=== PATIENT | female | born 1990 | race American Indian/Alaskan Native ===

== ENCOUNTER 2016-05-23 13:38 | Emergency (ER) | payer SELFPAY ==
[2016-05-23 15:09] LABS: Anion Gap 16 mmol/L; BUN/Creatinine Ratio 18.33; Blood Urea Nitrogen 11 mg/dL (7-17); Calcium 9.4 mg/dL (8.4-10.2); Carbon Dioxide 26 mmol/L (22-30); Glucose 85 mg/dL (65-100); Potassium 3.6 mmol/L (3.6-5.0); Sodium 139 mmol/L (137-145)
[2016-05-23 15:43] LABS: Basophils % (Auto) 0.3 % (0.0-1.8); Eosinophils % (Auto) 0.7 % (0.0-4.3); Hematocrit 41.5 % (30.3-42.9); Hemoglobin 13.5 gm/dl (10.1-14.3); Mean Corpuscular HGB Conc 33 % (30-34); Mean Corpuscular Hemoglobin 29 pg (28-32); Mean Corpuscular Volume 89 fl (79-97); Platelet Count 273 K/mm3 (140-440); Red Blood Count 4.68 M/mm3 (3.65-5.03); Red Cell Distribution Width 12.2 % (13.2-15.2); White Blood Count 7.1 K/mm3 (4.5-11.0)
[2016-05-24 01:24] VITALS: BP 144/95
--- NOTE | 2016-05-24 01:28 | Emergency Department Report ---
ED Chest Pain HPI - General Chief Complaint: Chest Pain Stated Complaint: CHEST PAIN/LF ARM NUMB/NECK PAIN/SOB Time Seen by Provider: 05/24/16 01:17 Source: patient Mode of arrival: Ambulatory Limitations: No Limitations - History of Present Illness Initial Comments: This is a 26-year-old female complaining of left neck pain with pain radiating down her left arm and into her left chest and scapular region as well. She denies any specific trauma. She states the symptoms than there for approximately 3 days. They are worse with activities and movement. She states is hard to go from a lying to sitting position. She also has noted some weakness in her left leg as well. Again no trauma specifically reported. She denies headache. He denies any significant cardiac history that she is aware of. She denies high blood pressure or diabetes. She is not on control currently. She doesn't smoke. Severity scale (0 -10): 6 Other Symptoms: denies: cough, fever, rash Treatments Prior to Arrival: none Aspirin use within the Past 7 Days: (0) No - Related Data Previous Rx's Medication Instructions Recorded Last Taken Type Nitrofurantoin [place]/M-Cryst 100 mg PO Q12HR #14 capsule 01/14/16 Unknown Rx [Macrobid CAP] Naproxen [Naprosyn] 500 mg PO BID #20 tablet 05/24/16 Unknown Rx Allergies Allergy/AdvReac Type Severity Reaction Status Date / Time latex AdvReac Unknown Verified 05/23/16 13:58 EZEQUIEL score - Ezequile Score Age > 65: (0) No Aspirin use within the Past 7 Days: (0) No 3 or more CAD Risk Factors: (0) No 2 or more Angina events in past 24 hrs: (0) No Known CAD with more than 50% Stenosis: (0) No Elevated Cardiac Markers: (0) No ST Deviation Greater than 0.5mm: (0) No EZEQUIEL Score: 0 ED Review of Systems ROS: Stated complaint: CHEST PAIN/LF ARM NUMB/NECK PAIN/SOB Other details as noted in HPI Comment: All other systems reviewed and negative Constitutional: denies: chills, fever Eyes: denies: eye pain, eye discharge, vision change ENT: denies: ear pain, throat pain Respiratory: denies: cough, shortness of breath, wheezing Cardiovascular: chest pain. denies: palpitations Endocrine: no symptoms reported Gastrointestinal: denies: abdominal pain, nausea, diarrhea Genitourinary: denies: urgency, dysuria, discharge Musculoskeletal: denies: back pain, joint swelling, arthralgia Skin: denies: rash, lesions Neurological: weakness. denies: headache, paresthesias Psychiatric: denies: anxiety, depression Hematological/Lymphatic: denies: easy bleeding, easy bruising ED Past Medical Hx - Past Medical History Previous Medical History?: No Additional medical history: vaginal delivery x 2 - Surgical History Past Surgical History?: No Additional Surgical History: 07/03/15 - Social History Smoking Status: Never Smoker Substance Use Type: Alcohol - Medications Home Medications: Home Medications Medication Instructions Recorded Confirmed Last Taken Type Nitrofurantoin [place]/M-Cryst 100 mg PO Q12HR #14 capsule 01/14/16 Unknown Rx [Macrobid CAP] Naproxen [Naprosyn] 500 mg PO BID #20 tablet 05/24/16 Unknown Rx ED Physical Exam - General Limitations: No Limitations General appearance: alert, in distress (due to neck pain) - Head Head exam: Present: atraumatic, normocephalic - Eye Eye exam: Present: normal appearance, EOMI. Absent: scleral icterus - ENT ENT exam: Present: normal exam, normal orophraynx, mucous membranes moist - Neck Neck exam: Present: other (tenderness over the left paracervical region extending down the left trapezius. Spasming is appreciated as well. Intolerance to range of motion due to this discomfort. No midline tenderness is appreciated.) - Respiratory Respiratory exam: Present: normal lung sounds bilaterally. Absent: respiratory distress, wheezes, rales - Cardiovascular Cardiovascular Exam: Present: regular rate, normal rhythm. Absent: systolic murmur, diastolic murmur, rubs, gallop - GI/Abdominal GI/Abdominal exam: Present: soft, normal bowel sounds. Absent: distended, tenderness, guarding - Extremities Exam Extremities exam: Present: normal inspection, other (increased pains of the neck with movement of the left arm. She has excellent intrinsic haand movement strength of the arms bilaterally.). Absent: pedal edema, calf tenderness - Back Exam Back exam: Present: normal inspection. Absent: tenderness, CVA tenderness (R), CVA tenderness (L), muscle spasm, paraspinal tenderness, vertebral tenderness - Neurological Exam Neurological exam: Present: alert, oriented X3, other (equal strength appreciated be made by me on the left upper and lower extremities as well as right upper and lower extremities. Downward Babinski's bilaterally. Patient is able to walk with a normal gait. Cranial nerves II through XII are intact as well.) - Psychiatric Psychiatric exam: Present: normal affect, normal mood - Skin Skin exam: Present: warm, dry, intact, normal color. Absent: rash ED Course Vital Signs 05/23/16 05/24/16 13:59 01:24 Temperature 98.2 F Pulse Rate 80 64 Respiratory 18 16 Rate Blood Pressure 114/83 Blood Pressure 144/95 [Left] O2 Sat by Pulse 100 95 Oximetry - Reevaluation(s) Reevaluation #1: 05/24/16 01:18 EKG at 1352 with normal sinus rhythm at 80 bpm. Normal CO QRS is noted. Normal axis. Normal ECG. Reevaluation #2: 05/24/16 05:54 Objectively I cannot appreciate left-sided weakness on the patient. Due to her subjective complaint however and her insistence that she may have had a stroke I did order a CT brain. This was negative for acute. He can her symptoms began 3 days ago. I would definitely expected be able to see something on CT at this point if there were something to see. Patient was reassured regarding not having a stroke. I strongly suspect she is having cervical radiculopathy with resulting left-sided pains. I did encourage her to take Aleve for this. She did get subjective near resolution with the Aleve and when she was given it here. No specific trauma was reported. I did not obtain plain films. She is not having midline tenderness. I suspect this is muscular in nature. I did give reassurance. Primary diagnosis cervical radiculopathy with myofascial strain. Safe for home. NB from a cardiac standpoint have no concerns. Her ECG is unremarkable labs are unremarkable. She does not have risk factors. I do not suspect PE she is perk negative. ED Medical Decision Making - Lab Data Result diagrams: 05/23/16 14:37 05/23/16 14:37 Critical care attestation.: If time is entered above; I have spent that time in minutes in the direct care of this critically ill patient, excluding procedure time. ED Disposition Clinical Impression: Cervical radiculopathy Disposition: DISCHARGED TO HOME OR SELFCARE Is pt being admited?: No Does the pt Need Aspirin: No Condition: Stable Instructions: Cervical Radiculopathy (ED) Additional Instructions: No strenuous activities. Continue routine activities however. After you start to feel improved, I'd like you to do some rehabilitation exercises to strengthen her neck and your back. Return if worsening. Prescriptions: Naproxen [Naprosyn] 500 mg PO BID #20 tablet Referrals: PRIMARY CARE, [Primary Care Provider] - 3-5 Days [facility] [Provider Group] - 3-5 Days Time of Disposition: 02:32
[2016-05-24] MEDS ORDERED: NAPROSYN PO ONE (01:49)
--- NOTE | 2016-05-24 02:16 | Cat Scan Report ---
FINAL REPORT PROCEDURE: CT HEAD/BRAIN WO CON TECHNIQUE: Computerized tomography of the head was performed without contrast material. HISTORY: L sided weakness COMPARISON: No prior studies are available for comparison. FINDINGS: Skull and scalp: Normal. Paranasal sinuses: Normal. Ventricles and subarachnoid spaces: Normal. Cerebrum: No evidence of hemorrhage, acute infarction or mass . Cerebellum and brainstem: No evidence of hemorrhage, acute infarction or mass. Vasculature: Normal. Comments: None. IMPRESSION: Normal Examination
== END 2016-05-24 02:39 | disposition home or self-care (01) ==
LOC: ED 13:38
DX: M54.12 Radiculopathy, cervical region (principal); Z91.040 Latex allergy status
CPT/HCPCS: 36415; 70450; 80048; 84484; 85025; 93005; 93010

== ENCOUNTER 2017-05-28 03:14 | Emergency (ER) | payer MEDICAID ==
[2017-05-28 04:35] LABS: BUN/Creatinine Ratio 20; Blood Urea Nitrogen 12 mg/dL (7-17); Hemolysis Index 44
[2017-05-28 05:03] LABS: Hematocrit 40.6 % (30.3-42.9); Hemoglobin 13.9 gm/dl (10.1-14.3); Mean Corpuscular Hemoglobin 30 pg (28-32); Mean Corpuscular Volume 88 fl (79-97); Red Blood Count 4.62 M/mm3 (3.65-5.03)
[2017-05-28 05:04] LABS: Basophils % (Auto) 0.4 % (0.0-1.8); Eosinophils % (Auto) 2.8 % (0.0-4.3); Lymphocytes % (Auto) 51.1 % (13.4-35.0); Mean Corpuscular HGB Conc 34 % (30-34); Monocytes % (Auto) 9.3 % (0.0-7.3); Platelet Count 253 K/mm3 (140-440); Red Cell Distribution Width 12.7 % (13.2-15.2)
[2017-05-28 05:05] LABS: Eosinophils # (Auto) 0.2 K/mm3 (0.0-0.4); Monocytes # (Auto) 0.7 K/mm3 (0.0-0.8)
[2017-05-28] MEDS ORDERED: NACL 0.9% 1000 ML 1,000 ML IV ONE (07:16)
--- NOTE | 2017-05-28 08:02 | XRay Report ---
CHEST 2 VIEWS INDICATION: Chest pain after drug use. COMPARISON: None similar. FINDINGS: PA and lateral chest radiographs demonstrate normal cardiomediastinal silhouette. Clear lungs. Intact bones. Bilateral nipple ornaments. EKG leads. CONCLUSION: No acute disease in the chest. Thank you for the opportunity to participate in this patient's care.
[2017-05-28 08:08] LABS: Amphetamine Screen,Urine PRESUMPTIVE NEGATIVE; Benzodiazepines Screen,Urine PRESUMPTIVE NEGATIVE; Cocaine Screen,Urine PRESUMPTIVE NEGATIVE; Methadone Screen,Urine PRESUMPTIVE NEGATIVE; Opiate Screen,Urine PRESUMPTIVE NEGATIVE
[2017-05-28 08:23] LABS: Bacteria,Urine 1+ /HPF (Negative); Bilirubin,Urine NEG (Negative); Blood,Urine NEG (Negative); Color,Urine Yellow (Yellow); Mucus,Urine 3+ /HPF; Protein,Urine <15 mg/dL mg/dL (Negative)
--- NOTE | 2017-05-28 08:34 | Emergency Department Report ---
History of Present Illness - General Chief Complaint: Overdose Stated Complaint: ETOH Time Seen by Provider: 05/28/17 07:44 Source: patient Mode of arrival: Ambulatory Limitations: No Limitations - History of Present Illness Initial Comments: 27-year-old female in no significant past medical history presents to the hospital complaining of generalized weakness and shortness of breath and chest pain after drinking alcohol and eating edibles with friends at the [employer] club last night. As per triage patient is awake with eyes fluttering and heavy breathing upon arrival. Currently she is resting, soft spoken, stating that she continues to feel generalized weakness. Chest pain has resolved. The edibles likely contained marijuana and denies other substance abuse. - Related Data Previous Rx's Medication Instructions Recorded Last Taken Type Nitrofurantoin [place]/M-Cryst 100 mg PO Q12HR #14 capsule 01/14/16 Unknown Rx [Macrobid CAP] Naproxen [Naprosyn] 500 mg PO BID #20 tablet 05/24/16 Unknown Rx Allergies Allergy/AdvReac Type Severity Reaction Status Date / Time latex AdvReac Unknown Verified 05/23/16 13:58 ED Review of Systems ROS: Stated complaint: ETOH Other details as noted in HPI Comment: All other systems reviewed and negative ED Past Medical Hx - Past Medical History Previous Medical History?: No Additional medical history: vaginal delivery x 2 - Surgical History Past Surgical History?: Yes Additional Surgical History: 07/03/15 - Social History Smoking Status: Never Smoker Substance Use Type: Alcohol, Marijuana - Medications Home Medications: Home Medications Medication Instructions Recorded Confirmed Last Taken Type Nitrofurantoin [place]/M-Cryst 100 mg PO Q12HR #14 capsule 01/14/16 Unknown Rx [Macrobid CAP] Naproxen [Naprosyn] 500 mg PO BID #20 tablet 05/24/16 Unknown Rx ED Physical Exam - General Limitations: No Limitations - Other Other exam information: General: No limitations, patient is alert in no acute distress Head exam: Atraumatic, normocephalic Eyes exam: Normal appearance, pupils equal reactive to light, extraocular movements intact ENT: Moist mucous membrane, normal oropharynx Neck exam: Normal inspection, full range of motion, no meningismus nontender Respiratory exam: Clear to auscultation bilateral, no wheezes, rales, crackles Cardiovascular: Normal rate and rhythm, normal heart sounds Abdomen: Soft, nondistended, and nontender, with normal bowel sounds, no rebound, or guarding Extremity: Full range of motion normal inspection no deformity Back: Normal Inspection, full range of motion, no tenderness Neurologic: Alert, oriented x3, cranial nerves intact, no motor or sensory deficit Psychiatric: normal affect, normal mood Skin: Warm, dry, intact ED Course Vital Signs 05/28/17 05/28/17 05/28/17 03:34 03:39 06:08 Temperature 98.7 F 98.7 F Pulse Rate 106 H 84 Respiratory 18 18 15 Rate Blood Pressure 115/84 Blood Pressure 115/84 [Left] O2 Sat by Pulse 100 Oximetry 05/28/17 05/28/17 05/28/17 06:30 07:00 07:06 Temperature 96.8 F L Pulse Rate 92 H 80 80 Respiratory 20 18 16 Rate Blood Pressure 106/70 102/68 Blood Pressure 110/73 [Left] O2 Sat by Pulse 87 88 Oximetry 05/28/17 05/28/17 05/28/17 07:40 07:42 08:00 Temperature Pulse Rate 66 63 Respiratory 16 15 15 Rate Blood Pressure 110/73 102/68 Blood Pressure [Left] O2 Sat by Pulse 88 100 100 Oximetry 05/28/17 05/28/17 09:00 10:00 Temperature Pulse Rate 102 H 74 Respiratory 13 16 Rate Blood Pressure 116/82 117/86 Blood Pressure [Left] O2 Sat by Pulse 98 94 Oximetry ED Medical Decision Making - Lab Data Result diagrams: 05/28/17 03:43 05/28/17 03:43 Lab Results 05/28/17 05/28/17 05/28/17 Range/Units 03:43 03:43 03:43 WBC (4.5-11.0) K/mm3 RBC (3.65-5.03) M/mm3 Hgb (10.1-14.3) gm/dl Hct (30.3-42.9) % MCV (79-97) fl MCH (28-32) pg MCHC (30-34) % RDW (13.2-15.2) % Plt Count (140-440) K/mm3 Lymph % (Auto) (13.4-35.0) % [place] % (Auto) (0.0-7.3) % Eos % (Auto) (0.0-4.3) % Baso % (Auto) (0.0-1.8) % Lymph # (1.2-5.4) K/mm3 [place] # (0.0-0.8) K/mm3 Eos # (0.0-0.4) K/mm3 Baso # (0.0-0.1) K/mm3 Seg Neutrophils % (40.0-70.0) % Seg Neutrophils # (1.8-7.7) K/mm3 Sodium 136 L (137-145) mmol/L Potassium 3.5 L (3.6-5.0) mmol/L Chloride 97.7 L (98-107) mmol/L Carbon Dioxide 25 (22-30) mmol/L Anion Gap 17 mmol/L BUN 12 (7-17) mg/dL Creatinine 0.6 L (0.7-1.2) mg/dL Estimated GFR > 60 ml/min BUN/Creatinine Ratio 20 % Glucose 115 H (65-100) mg/dL Calcium 9.0 (8.4-10.2) mg/dL HCG, Qual (Negative) Urine Color (Yellow) Urine Turbidity (Clear) Urine pH (5.0-7.0) Ur Specific [place] (1.003-1.030) Urine Protein (Negative) mg/dL Urine Glucose (UA) (Negative) mg/dL Urine Ketones (Negative) mg/dL Urine Blood (Negative) Urine Nitrite (Negative) Urine Bilirubin (Negative) Urine Urobilinogen (<2.0) mg/dL Ur Leukocyte Esterase (Negative) Urine WBC (Auto) (0.0-6.0) /HPF Urine RBC (Auto) (0.0-6.0) /HPF U Epithel Cells (Auto) (0-13.0) /HPF Urine Bacteria (Auto) (Negative) /HPF Urine Mucus /HPF Salicylates < 0.3 L (2.8-20.0) mg/dL Urine Opiates Screen Urine Methadone Screen Acetaminophen < 5.0 L (10.0-30.0) ug/mL Ur Barbiturates Screen Ur Phencyclidine Scrn Ur Amphetamines Screen U Benzodiazepines Scrn Urine Cocaine Screen U Marijuana (THC) Screen Drugs of Abuse Note Plasma/Serum Alcohol (0-0.07) % 05/28/17 05/28/17 05/28/17 Range/Units 03:43 03:43 03:43 WBC 7.8 (4.5-11.0) K/mm3 RBC 4.62 (3.65-5.03) M/mm3 Hgb 13.9 (10.1-14.3) gm/dl Hct 40.6 (30.3-42.9) % MCV 88 (79-97) fl MCH 30 (28-32) pg MCHC 34 (30-34) % RDW 12.7 L (13.2-15.2) % Plt Count 253 (140-440) K/mm3 Lymph % (Auto) 51.1 H (13.4-35.0) % [place] % (Auto) 9.3 H (0.0-7.3) % Eos % (Auto) 2.8 (0.0-4.3) % Baso % (Auto) 0.4 (0.0-1.8) % Lymph # 4.0 (1.2-5.4) K/mm3 [place] # 0.7 (0.0-0.8) K/mm3 Eos # 0.2 (0.0-0.4) K/mm3 Baso # 0.0 (0.0-0.1) K/mm3 Seg Neutrophils % 36.4 L (40.0-70.0) % Seg Neutrophils # 2.8 (1.8-7.7) K/mm3 Sodium (137-145) mmol/L Potassium (3.6-5.0) mmol/L Chloride (98-107) mmol/L Carbon Dioxide (22-30) mmol/L Anion Gap mmol/L BUN (7-17) mg/dL Creatinine (0.7-1.2) mg/dL Estimated GFR ml/min BUN/Creatinine Ratio % Glucose (65-100) mg/dL Calcium (8.4-10.2) mg/dL HCG, Qual Negative (Negative) Urine Color (Yellow) Urine Turbidity (Clear) Urine pH (5.0-7.0) Ur Specific [place] (1.003-1.030) Urine Protein (Negative) mg/dL Urine Glucose (UA) (Negative) mg/dL Urine Ketones (Negative) mg/dL Urine Blood (Negative) Urine Nitrite (Negative) Urine Bilirubin (Negative) Urine Urobilinogen (<2.0) mg/dL Ur Leukocyte Esterase (Negative) Urine WBC (Auto) (0.0-6.0) /HPF Urine RBC (Auto) (0.0-6.0) /HPF U Epithel Cells (Auto) (0-13.0) /HPF Urine Bacteria (Auto) (Negative) /HPF Urine Mucus /HPF Salicylates (2.8-20.0) mg/dL Urine Opiates Screen Urine Methadone Screen Acetaminophen (10.0-30.0) ug/mL Ur Barbiturates Screen Ur Phencyclidine Scrn Ur Amphetamines Screen U Benzodiazepines Scrn Urine Cocaine Screen U Marijuana (THC) Screen Drugs of Abuse Note Plasma/Serum Alcohol < 0.01 (0-0.07) % 05/28/17 05/28/17 Range/Units 07:32 07:32 WBC (4.5-11.0) K/mm3 RBC (3.65-5.03) M/mm3 Hgb (10.1-14.3) gm/dl Hct (30.3-42.9) % MCV (79-97) fl MCH (28-32) pg MCHC (30-34) % RDW (13.2-15.2) % Plt Count (140-440) K/mm3 Lymph % (Auto) (13.4-35.0) % [place] % (Auto) (0.0-7.3) % Eos % (Auto) (0.0-4.3) % Baso % (Auto) (0.0-1.8) % Lymph # (1.2-5.4) K/mm3 [place] # (0.0-0.8) K/mm3 Eos # (0.0-0.4) K/mm3 Baso # (0.0-0.1) K/mm3 Seg Neutrophils % (40.0-70.0) % Seg Neutrophils # (1.8-7.7) K/mm3 Sodium (137-145) mmol/L Potassium (3.6-5.0) mmol/L Chloride (98-107) mmol/L Carbon Dioxide (22-30) mmol/L Anion Gap mmol/L BUN (7-17) mg/dL Creatinine (0.7-1.2) mg/dL Estimated GFR ml/min BUN/Creatinine Ratio % Glucose (65-100) mg/dL Calcium (8.4-10.2) mg/dL HCG, Qual (Negative) Urine Color Yellow (Yellow) Urine Turbidity Clear (Clear) Urine pH 6.0 (5.0-7.0) Ur Specific [place] 1.024 (1.003-1.030) Urine Protein <15 mg/dl (Negative) mg/dL Urine Glucose (UA) Neg (Negative) mg/dL Urine Ketones Neg (Negative) mg/dL Urine Blood Neg (Negative) Urine Nitrite Neg (Negative) Urine Bilirubin Neg (Negative) Urine Urobilinogen 2.0 (<2.0) mg/dL Ur Leukocyte Esterase Mod (Negative) Urine WBC (Auto) 3.0 (0.0-6.0) /HPF Urine RBC (Auto) 3.0 (0.0-6.0) /HPF U Epithel Cells (Auto) 11.0 (0-13.0) /HPF Urine Bacteria (Auto) 1+ (Negative) /HPF Urine Mucus 3+ /HPF Salicylates (2.8-20.0) mg/dL Urine Opiates Screen Presumptive negative Urine Methadone Screen Presumptive negative Acetaminophen (10.0-30.0) ug/mL Ur Barbiturates Screen Presumptive negative Ur Phencyclidine Scrn Presumptive negative Ur Amphetamines Screen Presumptive negative U Benzodiazepines Scrn Presumptive negative Urine Cocaine Screen Presumptive negative U Marijuana (THC) Screen Presumptive positive Drugs of Abuse Note Disclamer Plasma/Serum Alcohol (0-0.07) % - EKG Data -: EKG Interpreted by Dc EKG shows normal: sinus rhythm (89), axis (24), QRS complexes (96), ST-T waves ( no stemi/t inv) Rate: normal - Radiology Data Radiology results: report reviewed read by radiologist cxr naf - Medical Decision Making Marijuana intoxication Like also compounded by alcohol use ED workup unremarkable for acute abnormality other then positive UDS for marijuana Patient felt better at discharge and able to ambulate without difficulty given mild Po potassium for mild hypokalemia - Differential Diagnosis drug intoxication, arrhythmia, anxiety Critical Care Time: No Critical care attestation.: If time is entered above; I have spent that time in minutes in the direct care of this critically ill patient, excluding procedure time. ED Disposition Clinical Impression: Marijuana intoxication, Alcohol use, Hypokalemia Disposition: DC-01 TO HOME OR SELFCARE Is pt being admited?: No Does the pt Need Aspirin: No Condition: Stable Instructions: Medicinal Use of Cannabis (ED) Additional Instructions: Avoid overuse off marijuana/edibles. You were given discharge instructions for medicinal use of marijuana since marijuana intoxication/overdose discharge instructions are not available. Follow-up with the primary care doctor provider or the doctor of your choice Referrals: ELIZ MORENO MD [Staff Physician] - 3-5 Days Time of Disposition: 10:28
[2017-05-28] MEDS ORDERED: POTASSIUM CHLORIDE PO ONE (09:00)
[2017-05-28 09:31] LABS: Cannabinoid Screen,Urine PRESUMPTIVE POSITIVE
[2017-05-28 10:14] VITALS: BP 117/86
== END 2017-05-28 11:00 | disposition home or self-care (01) ==
LOC: ED 03:14
DX: F12.129 Cannabis abuse with intoxication, unspecified (principal); Z72.89 Other problems related to lifestyle; E87.6 Hypokalemia; F12.10 Cannabis abuse, uncomplicated
CPT/HCPCS: 36415; 71046; 80048; 80307; 81001; 84703; 85025; 93005; 93010; 96360; 99284; G0480; J7030; 80320